=== PATIENT | female | born 1985 | race Caucasian/White ===

== ENCOUNTER 2017-02-27 21:32 | Emergency (ER) | payer OTHER ==
[~2017-02-27] VITALS: Ht 162.6 cm; Wt 47.6 kg
--- NOTE | ~2017-02-27 | EKG ---
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1985 Requested By: Elsi Knutosn Order Number: [id number] MD: Chuy Reyez Measurements Intervals [place] Rate: 68 P: 68 NC: 163 QRS: 130 QRSD: 108 T: -59 QT: 388 QTc: 413 Interpretive Statements Sinus rhythm Right axis deviation Poor R wave progression Abnormal T-wave, diffuse leads No previous ECG available for comparison Electronically Signed On 02-28-2017 8:25:12 PATTERN ATTENDANT by Chuy Reyez [email or web address] <ELECTRONICALLY SIGNED> By: Chuy Reyez MD, [facility] 02/28/17 0825 0034 0034 Chuy Reyez MD, FACC /EPI
--- NOTE | ~2017-02-27 | EKG ---
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
[~2017-02-27 21:32] MED LIST: BACTRIM DS TAB1 EACH PO; CITROMA296 ML PO; KEFLEX500 MG PO
[2017-02-27] MEDS ORDERED: LETAIRIS5 MG PO (21:52)
[2017-02-27] MEDS ORDERED: LASIX 40 MG TAB40 M2 PO (21:55)
[2017-02-27] MEDS ORDERED: VIAGRA25 MG PO (21:55)
[2017-02-27 22:57] LABS: ABSOLUTE NEUTROPHILS 2.1 thou/uL (1.4-8.2); BASOPHILS 0.3 % (0.0-2.0); EOSINOPHILS 1.5 % (0.0-3.0); HEMATOCRIT 35.7 % (37.0-47.0); HEMOGLOBIN 12.1 gm/dL (12.0-15.0); LYMPHOCYTES 49.4 % (24.0-44.0); MANUAL DIFF NO; MCHC 33.8 g/dL (28.0-37.0); MCV 91.8 fL (80.0-100.0); MONOCYTES 6.6 % (1.0-8.0); PLATELET COUNT 148 thou/uL (150-400); POLYS 42.2 % (36.0-66.0); RBC 3.89 mil/uL (4.20-5.00); RDW 13.9 % (10.5-14.5)
[2017-02-27 23:06] LABS: ANION GAP 3 mmol/L (7-16); BUN 14 mg/dL (7-18); CALCIUM 9.5 mg/dL (8.5-10.1); CHLORIDE 102 mmol/L (98-107); CO2 32 mmol/L (21-32); CREATININE 0.8 mg/dL (0.6-1.0); GLUCOSE 86 mg/dL (74-106); SODIUM 137 mmol/L (136-145)
[2017-02-27 23:15] LABS: ALBUMIN 3.8 g/dL (3.4-5.0); ALKALINE PHOSPHATASE 69 U/L (46-116); DIRECT BILIRUBIN 0.2 mg/dL (<0.1-0.3); SGOT 19 U/L (15-37); SGPT 22 U/L (30-65); TOTAL BILIRUBIN 0.9 mg/dL (<0.1-1.0); TOTAL PROTEIN 7.5 g/dL (6.4-8.2); TROPONIN-I < 0.04 ng/mL (<0.06)
[2017-02-28] MEDS ORDERED: ULTRAM 50MG TAB50 MG PO (01:50)
[2017-02-28 02:12] VITALS: BP 108/61
== END 2017-02-28 02:17 | disposition home or self-care (01) ==
LOC: ER 21:32
PROVIDERS: Emergency Medicine
DX: R07.89 Other chest pain (principal); F17.210 Nicotine dependence, cigarettes, uncomplicated; I50.9 Heart failure, unspecified; I27.20 Pulmonary hypertension, unspecified